=== PATIENT | male | born 1930 | race Caucasian/White ===

== ENCOUNTER 2017-02-03 15:21 | Inpatient (IN) | payer MEDICARE ==
[~2017-02-03] VITALS: Ht 167.6 cm; Wt 68.9 kg
[~2017-02-03 15:21] MED LIST: ASPI325T17 PO; DIGO250T PO; LASIX PO; LOVA20TA2 PO; POTASSIUM PO
[2017-02-03 16:02] LABS: HEMATOCRIT 47.6 % (39.2-51.8); HEMOGLOBIN 16.1 g/dL (13.7-18.0); WHITE BLOOD COUNT 5.1 x10^3/uL (3.4-10)
[2017-02-03 16:03] LABS: DIFF TOTAL CELLS COUNTED 100 CELL DIFF
[2017-02-03 16:07] LABS: BLOOD UREA NITROGEN 20 mg/dL (7-18)
[2017-02-03 16:15] LABS: IS PT STATUS REG ER OR PRE ER? YES
[2017-02-03 16:48] LABS: ANISOCYTOSIS 1+; VERIFY COUNTS? YES
[2017-02-03] MEDS ORDERED: ASPIRIN 81 MG TABLET CHEW PO ONE (17:00)
[2017-02-03] MEDS ORDERED: OMNIPAQUE 350 MG/ML, 100ML BOTTLE ONE (17:24)
[2017-02-03] MEDS ORDERED: ONDANSETRON 2MG/ML, 2ML IVPush PRN (18:30)
[2017-02-03] MEDS ORDERED: ASPIRIN 81 MG TABLET CHEW ONE (19:19)
[2017-02-03 20:25] VITALS: BP 120/65
[2017-02-03] MEDS ORDERED: ENALAPRILAT 1.25 MG/ML, 2ML IVPush PRN (23:00)
[2017-02-03] MEDS ORDERED: ONDANSETRON ODT 4 MG PO PRN (23:00)
[2017-02-04 00:39] LABS: IS PT STATUS REG ER OR PRE ER? NO
[2017-02-04] MEDS: LOVASTATIN 40 MG TABLET PO SCH ×2 (01:20→21:00)
[2017-02-04 01:45] VITALS: BP 118/72
[2017-02-04 06:02] LABS: BLOOD UREA NITROGEN 20 mg/dL (7-18)
[2017-02-04 06:09] LABS: IS PT STATUS REG ER OR PRE ER? NO
[2017-02-04 06:20] LABS: HEMATOCRIT 46.5 % (39.2-51.8); HEMOGLOBIN 15.7 g/dL (13.7-18.0); WHITE BLOOD COUNT 5.4 x10^3/uL (3.4-10)
[2017-02-04 06:46] LABS: DIFF TOTAL CELLS COUNTED 100 CELL DIFF
[2017-02-04 06:49] LABS: ANISOCYTOSIS 1+; POLYCHROMASIA 1+; VERIFY COUNTS? YES
[2017-02-04 08:00] VITALS: BP 127/72
[2017-02-04] MEDS ORDERED: POTASSIUM CHLORIDE 20 MEQ TAB.ER.PRT PO SCH (09:00)
[2017-02-04] MEDS: FUROSEMIDE 20 MG/2 ML IV SCH ×2 (09:04→16:15)
[2017-02-04] MEDS: DIGOXIN 0.25 MG TABLET PO SCH (09:05)
[2017-02-04] MEDS: ASPIRIN 325 MG TABLET PO SCH (09:05)
[2017-02-04 14:00] VITALS: BP 107/63
[2017-02-04] MEDS: CEFTRIAXONE PMX 1GM/50ML 50 ML IV SCH (18:06)
[2017-02-04] MEDS: ACETAMINOPHEN 325 MG TABLET PO PRN (18:06)
[2017-02-04 19:02] VITALS: BP 112/66
[2017-02-04] MEDS: DOXYCYCLINE 100MG TABLET PO SCH (21:00)
[2017-02-04] MEDS: GUAIFENESIN ER 600 MG TABLET PO SCH (21:00)
[2017-02-05 00:19] VITALS: BP 123/67
[2017-02-05 05:52] LABS: HEMATOCRIT 46.5 % (39.2-51.8); HEMOGLOBIN 15.8 g/dL (13.7-18.0); WHITE BLOOD COUNT 5.9 x10^3/uL (3.4-10)
[2017-02-05 06:00] LABS: BLOOD UREA NITROGEN 31 mg/dL (7-18)
[2017-02-05 07:05] LABS: DIFF TOTAL CELLS COUNTED 100 CELL DIFF
[2017-02-05 07:06] LABS: ANISOCYTOSIS 1+; POLYCHROMASIA 1+; VERIFY COUNTS? YES
[2017-02-05] MEDS: DOXYCYCLINE 100MG TABLET PO SCH ×2 (09:00→20:25)
[2017-02-05] MEDS: FUROSEMIDE 20 MG/2 ML IV SCH (09:02)
[2017-02-05] MEDS: ASPIRIN 325 MG TABLET PO SCH (09:02)
[2017-02-05] MEDS: GUAIFENESIN ER 600 MG TABLET PO SCH ×2 (09:03→20:26)
[2017-02-05] MEDS: DIGOXIN 0.25 MG TABLET PO SCH (09:03)
[2017-02-05 14:00] VITALS: BP 104/67
[2017-02-05] MEDS: CEFTRIAXONE PMX 1GM/50ML 50 ML IV SCH (18:31)
[2017-02-05 18:44] VITALS: BP 108/67
[2017-02-05] MEDS: ACETAMINOPHEN 325 MG TABLET PO PRN (20:25)
[2017-02-05] MEDS: LOVASTATIN 40 MG TABLET PO SCH (20:26)
[2017-02-06 01:52] VITALS: BP 127/93
[2017-02-06] MEDS ORDERED: LORazepam 2 MG/ML, 1ML IVPush PRN (02:00)
[2017-02-06] MEDS ORDERED: LORazepam 2 MG/ML, 1ML ONE (02:16)
[2017-02-06 05:41] LABS: BLOOD UREA NITROGEN 39 mg/dL (7-18)
[2017-02-06 05:45] LABS: ASPARTATE AMINO TRANSFERASE 87 U/L (15-37)
[2017-02-06 05:56] LABS: HEMATOCRIT 45.3 % (39.2-51.8); HEMOGLOBIN 15.1 g/dL (13.7-18.0); WHITE BLOOD COUNT 6.2 x10^3/uL (3.4-10)
[2017-02-06 06:25] LABS: DIFF TOTAL CELLS COUNTED 100 CELL DIFF
[2017-02-06 06:26] LABS: VERIFY COUNTS? YES
[2017-02-06 06:28] LABS: ANISOCYTOSIS 1+; POLYCHROMASIA 1+
[2017-02-06 08:27] VITALS: BP 120/62
[2017-02-06] MEDS ORDERED: FUROSEMIDE 20 MG TABLET PO SCH (09:00)
[2017-02-06] MEDS: GUAIFENESIN ER 600 MG TABLET PO SCH ×3 (09:00→22:58)
[2017-02-06] MEDS: DIGOXIN 0.25 MG TABLET PO SCH (09:25)
[2017-02-06] MEDS: PIPERACILLIN/TAZO/PMX 3.375GM 50 ML IV SCH ×3 (09:53→23:29)
[2017-02-06 12:13] LABS: RAPID INFLUENZA A Negative (Negative); RAPID INFLUENZA B Negative (Negative)
[2017-02-06] MEDS ORDERED: PHARMACOKINETIC MONITORING MC PRN (14:00)
[2017-02-06] MEDS ORDERED: PHARMACOKINETIC CONSULTATION MC ONE (14:00)
[2017-02-06] MEDS ORDERED: VANCOMYCIN 1,300 MG in SODIUM CHLORIDE 0.9% 250 ML IV SCH (14:00)
[2017-02-06] MEDS ORDERED: VANCOMYCIN PER PHARMACY MC PRN (14:00)
[2017-02-06 15:26] VITALS: BP 110/70
[2017-02-06] MEDS ORDERED: SODIUM CHLORIDE 0.9% 500 ML IV SCH (15:30)
[2017-02-06] MEDS ORDERED: LACTULOSE 3.3 GM/5 ML ORAL.SOL RC ONE ×2 (16:30)
[2017-02-06] MEDS ORDERED: morphine SULFATE 10 MG/ML, 1ML ONE (16:42)
[2017-02-06] MEDS: MORPHINE SULFATE 4 MG/ML, 1ML IVPush PRN (16:44)
[2017-02-06 19:30] VITALS: BP 103/57
[2017-02-06] MEDS: LOVASTATIN 40 MG TABLET PO SCH (22:58)
[2017-02-07] MEDS: NOREPINEPHRINE 4 MG in SODIUM CHLORIDE 0.9% 246 ML IV PRN ×3 (00:45→11:40)
[2017-02-07] MEDS ORDERED: SODIUM CHLORIDE 0.9% 1,000 ML IV SCH (03:00)
[2017-02-07] MEDS ORDERED: D5%-0.9% NACL 1,000 ML IV SCH ×2 (03:30→16:00)
[2017-02-07] MEDS: PIPERACILLIN/TAZO/PMX 3.375GM 50 ML IV SCH ×2 (05:39→11:28)
[2017-02-07 05:54] LABS: HEMATOCRIT 46.8 % (39.2-51.8); HEMOGLOBIN 15.3 g/dL (13.7-18.0); WHITE BLOOD COUNT 12.2 x10^3/uL (3.4-10)
[2017-02-07 06:05] LABS: ASPARTATE AMINO TRANSFERASE 95 U/L (15-37); BLOOD UREA NITROGEN 52 mg/dL (7-18)
[2017-02-07 06:31] LABS: DIFF TOTAL CELLS COUNTED 100 CELL DIFF
[2017-02-07 06:35] LABS: VERIFY COUNTS? YES
[2017-02-07 06:36] LABS: ANISOCYTOSIS 1+; POLYCHROMASIA 1+
[2017-02-07] MEDS: GUAIFENESIN ER 600 MG TABLET PO SCH (09:00)
[2017-02-07] MEDS ORDERED: NOREPINEPHRINE 8 MG in SODIUM CHLORIDE 0.9% 242 ML IV PRN (14:00)
[2017-02-07] MEDS: MORPHINE SULFATE 4 MG/ML, 1ML IVPush PRN (15:02)
[2017-02-07] MEDS ORDERED: LORazepam 2 MG/ML, 1ML IVPush PRN ×2 (15:30→16:00)
[2017-02-07] MEDS ORDERED: MORPHINE SULFATE 4 MG/ML, 1ML IVPush PRN ×3 (15:30→16:00)
[2017-02-07] MEDS ORDERED: ATROPINE OPHTH SOLN 1%, 5ML BC PRN (15:30)
[2017-02-07] MEDS ORDERED: SCOPOLAMINE 1MG PATCH TD ONE (15:30)
[2017-02-07] MEDS ORDERED: ACETAMINOPHEN 325 MG TABLET PO PRN (16:00)
[2017-02-07] MEDS ORDERED: ONDANSETRON ODT 4 MG PO PRN (16:00)
[2017-02-07] MEDS ORDERED: ENALAPRILAT 1.25 MG/ML, 2ML IVPush PRN (16:00)
[2017-02-07] MEDS ORDERED: morphine SULFATE 10 MG/ML, 1ML ONE (16:14)
[2017-02-15 08:06] LABS: NGI WEST NILE VIRUS RT PCR Negative (.)
== END 2017-02-07 16:32 | disposition expired | DRG 871 ==
LOC: ED 18:14 → EDIP 18:23 → 5SO 21:15 → CCU 02-06 22:26
PROVIDERS: ADMIT Hospitalist; ATTEND Hospitalist
PROC: 02HV33Z Insertion of Infusion Device into Superior Vena Cava, Percutaneous Approach (ICD-10-PCS; principal; 2017-02-07)
DX: A41.9 Sepsis, unspecified organism (principal); I50.33 Acute on chronic diastolic (congestive) heart failure; J96.01 Acute respiratory failure with hypoxia; I21.4 Non-ST elevation (NSTEMI) myocardial infarction; R57.9 Shock, unspecified; J69.0 Pneumonitis due to inhalation of food and vomit; G93.40 Encephalopathy, unspecified; D68.69 Other thrombophilia; E44.1 Mild protein-calorie malnutrition; I27.0 Primary pulmonary hypertension; M48.56XA Collapsed vertebra, not elsewhere classified, lumbar region, initial encounter for fracture; N17.9 Acute kidney failure, unspecified; D69.6 Thrombocytopenia, unspecified; D75.89 Other specified diseases of blood and blood-forming organs; E11.9 Type 2 diabetes mellitus without complications; E78.5 Hyperlipidemia, unspecified; I25.10 Atherosclerotic heart disease of native coronary artery without angina pectoris; I48.2 Chronic atrial fibrillation; M40.209 Unspecified kyphosis, site unspecified; Z51.5 Encounter for palliative care; Z66 Do not resuscitate; Z79.82 Long term (current) use of aspirin; Z95.0 Presence of cardiac pacemaker; Z68.24 Body mass index [BMI] 24.0-24.9, adult
CPT/HCPCS: 36415; 70450; 71010; 71275; 80048; 80053; 80162; 81001; 82040; 82140; 82607; 82746; 82962; 83605; 83735; 83880; 84100; 84145; 84484; 85025; 87040; 87070; 87081; 87086; 87205; 87400; 87798; 93005; 93306; 93970; 99285; J0696; J2543; J3370; J7042; Q9967; J1940; J2060; J7030; J7050